=== PATIENT | female | born 1970 | race Caucasian/White ===

== ENCOUNTER 2016-09-03 07:19 | Emergency (ER) | payer BC ==
[~2016-09-03] VITALS: Ht 167.6 cm; Wt 87.1 kg
[~2016-09-03 07:19] MED LIST: CIPROFLOXACIN250 MG PO; CITALOPRAM HBR20 MG PO; FIORICET-COD 51 EACH PO; GEMFIBROZIL600 MG PO; LEVAQUIN750 MG PO; MEDROXYPROGESTE10 MG PO; NORCO 10-325 T1 EACH PO; NORCO 5-325 TA1 EACH PO; ONDANSETRON HCL4 MG PO; PREDNISONE20 MG PO; PROAIR HFA8.5 GM INH; PROVENTIL HFA6.7 GM INH; WAL-PHED 12 HO120 MG PO; ZOFRAN ODT4 MG PO; ZOFRAN ODT8 MG SL
[2016-09-03] MEDS ORDERED: TOPIRAMATE25 MG PO (07:34)
== END 2016-09-03 09:12 | disposition home or self-care (01) ==
LOC: ED 07:19
DX: R10.9 Unspecified abdominal pain (principal); E78.5 Hyperlipidemia, unspecified; F41.9 Anxiety disorder, unspecified; Z87.442 Personal history of urinary calculi; Z90.49 Acquired absence of other specified parts of digestive tract; Z88.0 Allergy status to penicillin; Z91.040 Latex allergy status; Z88.8 Allergy status to other drugs, medicaments and biological substances; Z79.891 Long term (current) use of opiate analgesic
CPT/HCPCS: 80053; 81001; 84703; 85025; 96361; 96374; 96375; 99283; J1885; J2405; J7030

== ENCOUNTER 2017-12-02 17:19 | Emergency (ER) | payer BC ==
[~2017-12-02] VITALS: Ht 167.6 cm; Wt 81.6 kg
--- OUTSIDE RECORDS SUMMARY | ~2017-12-02 | XMS | Clinical Summary ---
Demographics + + + | Address | [address] | | | [place] [address] | + + + | Home Phone | | + + + | Preferred Language | Unknown | + + + | Marital Status | | + + + | Zoroastrianism Affiliation | Unknown | + + + | Race | Unknown | + + + | Ethnic Group | Unknown | + + + Author + + + | Author | [facility] | + + + | Organization | [facility] | + + + | Address | Unknown | + + + | Phone | Unavailable | + + + Support + + +---------+ + | Name | Relationship | Address | Phone | + + +---------+ + | Valdo Zhu | ECON | Unknown | | + + +---------+ + Care Team Providers + +------+ + | Care Financial Planning Assistant Name | Role | Phone | + +------+ + | Andrew Walker MD | PP | | + +------+ + Allergies + + + + + + | Active Allergy | Reactions | Severity | Noted | Comments | | | | | Date | | + + + + + + | Niacin | Shortness of Breath | High | 09/08/19 | Lips turned blue | | | | | 18 | | + + + + + + | Paroxetine | Mental Changes | Low | 09/08/19 | | | | | | 18 | | + + + + + + | Penicillins | Anaphylaxis | High | 09/08/19 | | | | | | 18 | | + + + + + + Current Medications + + +--------+---------+------+------+-------+ | Prescription | Sig. | Disp. | Refills | Star | End | Statu | | | | | | t | Date | s | | | | | | Date | | | + + +--------+---------+------+------+-------+ | | Take by mouth. | | | | | Activ | | Glucosamine-Chondroi | | | | | | e | | tin-Vit C | | | | | | | | 4672-1028-14 MG/30ML | | | | | | | | LIQD | | | | | | | + + +--------+---------+------+------+-------+ | Cholecalciferol | Take by mouth. | | | | | Activ | | 2000 units CAPS | | | | | | e | + + +--------+---------+------+------+-------+ | vitamin E 400 UNIT | Take 400 Units by | | | | | Activ | | capsule | mouth 2 (two) times | | | | | e | | | daily. | | | | | | + + +--------+---------+------+------+-------+ | pseudoephedrine | Take 120 mg by mouth | | | | | Activ | | (SUDAFED) 120 MG 12 | as needed for | | | | | e | | hr tablet | Congestion. | | | | | | + + +--------+---------+------+------+-------+ | gemfibrozil | Take 600 mg by | | | | | Activ | | (LOPID) 600 MG | mouth. | | | | | e | | tabletIndications: | | | | | | | | before meal | | | | | | | + + +--------+---------+------+------+-------+ | | Take 5 mg by mouth | | | | | Activ | | medroxyPROGESTERone | daily. | | | | | e | | (PROVERA) 10 MG | | | | | | | | tabletIndications: | | | | | | | | 1st - 10th of the | | | | | | | | month only | | | | | | | + + +--------+---------+------+------+-------+ | cyclobenzaprine | Take 10 mg by mouth | | | | | Activ | | (FLEXERIL) 10 MG | as needed for Muscle | | | | | e | | tablet | spasms. | | | | | | + + +--------+---------+------+------+-------+ | | Take 1 tablet by | | | | | Activ | | butalbital-acetamino | mouth every 4 (four) | | | | | e | | phen-caffeine | hours as needed for | | | | | | | (ESGIC) 50-325-40 MG | Pain. | | | | | | | per tablet | | | | | | | + + +--------+---------+------+------+-------+ | tiZANidine | Start 1/2 tab by | 30 | 3 | 07/0 | | Activ | | (ZANAFLEX) 4 MG | mouth nightly x 1 | tablet | | 3/20 | | e | | tablet | week, then 1 tab | | | 18 | | | | | nightly. | | | | | | + + +--------+---------+------+------+-------+ | sumatriptan | Take 1 tablet by | 10 | 3 | 07/0 | 07/0 | Activ | | (IMITREX) 100 MG | mouth as needed for | tablet | | 3/20 | 3/20 | e | | tablet | Migraine. May repeat | | | 18 | 19 | | | | dose in 2 hours if | | | | | | | | no relief. Do not | | | | | | | | exceed 2 doses in 24 | | | | | | | | hours. | | | | | | + + +--------+---------+------+------+-------+ | topiramate | Take 25 mg by mouth | | | | 09/0 | Disco | | (TOPAMAX) 25 MG | 2 (two) times daily. | | | | 5/20 | ntinu | | capsule | | | | | 18 | ed | + + +--------+---------+------+------+-------+ Active Problems Not on file Encounters +--------+ + + + + | Date | Type | Specialty | Care Team | Description | +--------+ + + + + | 11/10/ | Office | | Megan Porras, | Cervicogenic | | 2018 | Visit | | PA-C | migraine (Primary | | | | | | Dx) | +--------+ + + + + | 10/13/ | Documentati | | Katherine Browning | Other (Denia Loza | | 2017 | on Only | | [facility] 04/23/16) | +--------+ + + + + | 10/08/ | Documentati | | Onelia Castañeda | Other ([facility] | | 2017 | on Only | | [place] | Physical Therapy | | | | | | DOS:09/15/17) | +--------+ + + + + | 09/16/ | Documentati | | Katherine Browning | Other (Referral | | 2017 | on Only | | [facility] | 08/06/2017) | +--------+ + + + + | 09/15/ | Documentati | | Katherine Browning | Other | | 2018 | on Only | | [facility] | (Headache/Migraine | | | | | | patient intake form | | | | | | 09/07/17) | +--------+ + + + + | 09/08/ | Hospital | | See, Medical | Pain | | 2018 | Encounter | | Record | | +--------+ + + + + | 09/08/ | Procedure | | | | | 2018 | Pass | | | | +--------+ + + + + | 09/08/ | Ancillary | | See, Medical | Pain | | 2018 | Orders | | Record | | +--------+ + + + + | 09/07/ | Office | | Megan Porras, | Cervicogenic | | 2018 | Visit | | PA-C | migraine (Primary | | | | | | Dx); Mixed headache | +--------+ + + + + | 09/07/ | Documentati | | Estrella Cash, | Other (Request for | | 2018 | on Only | | CHILD SUPPORT CASE OFFICER | records: Dr. Clarke: | | | | | | Denia Loza) | +--------+ + + + + from Last 3 Months Family History + + +------+ + | Medical History | Relation | Name | Comments | + + +------+ + | Stroke | Brother | | | + + +------+ + | High blood pressure | Father | | | + + +------+ + | High cholesterol | Father | | | + + +------+ + | High blood pressure | Maternal | | | | | Grandfath | | | | | er | | | + + +------+ + | High cholesterol | Mother | | | + + +------+ + + +------+--------+ + | Relation | Name | Status | Comments | + +------+--------+ + | Brother | | | | + +------+--------+ + | Father | | | | + +------+--------+ + | Maternal Grandfather | | | | + +------+--------+ + | Mother | | | | + +------+--------+ + Social History + +-------+ +--------+------+ | Tobacco Use | Types | Packs/Day | Years | Date | | | | | Used | | + +-------+ +--------+------+ | Never Smoker | | | | | + +-------+ +--------+------+ + +---+---+---+ | Smokeless Tobacco: | | | | | Never Used | | | | + +---+---+---+ + + +---------+ + | Alcohol Use | Drinks/We | oz/Week | Comments | | | ek | | | + + +---------+ + | No | | | | + + +---------+ + + + + | Sex Assigned at | Date Recorded | | | | + + + | Not on file | | + + + Last Filed Vital Signs + + + + | Vital Sign | Reading | Time Taken | + + + + | Blood Pressure | 111/72 | 11/10/2017 10:06 AM PDT | + + + + | Pulse | 71 | 11/10/2017 10:06 AM PDT | + + + + | Temperature | - | - | + + + + | Respiratory Rate | - | - | + + + + | Oxygen Saturation | 100% | 11/10/2017 10:06 AM PDT | + + + + | Inhaled Oxygen | - | - | | Concentration | | | + + + + | Weight | 82.1 kg (180 lb 14.4 | 11/10/2017 10:06 AM PDT | | | oz) | | + + + + | Height | 167.6 cm (5' 6") | 11/10/2017 10:06 AM PDT | + + + + | Body Mass Index | 29.2 | 11/10/2017 10:06 AM PDT | + + + + Plan of Treatment +--------+---------+ + + + | Date | Type | Specialty | Care Team | Description | +--------+---------+ + + + | 05/10/ | Office | | Megan Porras, | | | 2019 | Visit | | [facility] | | | | | | [place] | | | | | | [address] | | | | | | | | +--------+---------+ + + + + + + + + | Health Maintenance | Due Date | Last Done | Comments | + + + + + | Vaccine: | | | | | Dtap/Tdap/Td (1 - | 2 | | | | Tdap) | | | | + + + + + | Cervical Cancer | | | | | Screening (Pap) | 3 | | | + + + + + | Vaccine: Influenza | | | | | (#1) | 8 | | | + + + + + Results Not on filefrom Last 3 Months Insurance +---------+--------+ +------+-------+ + | Payer | Benefi | Subscriber | Type | Phone | Address | | | t Plan | ID | | | | | | / | | | | | | | Group | | | | | +---------+--------+ +------+-------+ + | PREMERA | PREMER | [id number] | | | [address] [address] | | | A BLUE | 1998 | | | [place], [place] | | | CARD | | | | [address] | +---------+--------+ +------+-------+ + + +--------+ +--------+ + + | Guarantor Name | Accoun | Relation to | Date | Phone | Billing Address | | | t Type | Patient | of | | | | | | | | | | + +--------+ +--------+ + + | ALLYSON ZHU | Person | Self | [birth year] Home: | [address] | | | al/Lucien | | 1970 | [phone] [place], [place] | | | bernabe | | | [phone] | [address] | + +--------+ +--------+ + +
--- OUTSIDE RECORDS SUMMARY | ~2017-12-02 | XMS | Encounter Summary ---
Demographics + + + | Address | [address] | | | [place] [address] | + + + | Home Phone | | + + + | Preferred Language | Unknown | + + + | Marital Status | | + + + | Orthodox Affiliation | Unknown | + + + | Race | Unknown | + + + | Ethnic Group | Unknown | + + + Author + + + | Author | [facility] | + + + | Organization | [facility] | + + + | Address | Unknown | + + + | Phone | Unavailable | + + + Support + + +---------+ + | Name | Relationship | Address | Phone | + + +---------+ + | Valdo Carrasquillo | ECON | Unknown | | + + +---------+ + Care Team Providers + +------+ + | Care Railroad Shop Inspector Name | Role | Phone | + +------+ + | Andrew Walker MD | PCP | | + +------+ + Reason for Referral MRI/CAT Scan (Routine) + +--------+ + + + + | Status | Reason | Specialty | Diagnoses / | Referred By | Referred To | | | | | Procedures | Contact | Contact | + +--------+ + + + + | Pending | | Radiology | Diagnoses | See, | | | Review | | | Pain | Medical | | | | | | Procedures | Record | | | | | | MRI brain | | | | | | | without | | | | | | | contrast | | | + +--------+ + + + + Encounter Details +--------+ + + + + | Date | Type | Department | Care Team | Description | +--------+ + + + + | 09/08/ | Ancillary | [facility] | See, Medical | Pain | | 2018 | [facility] | [facility] MRI | Record | | | | | [address] | | | | | | [place] [address] | | | | | | [phone] | | | +--------+ + + + + Social History + +-------+ +--------+------+ | [...] on file | | + + + as of this encounter Plan of Treatment +--------+---------+ + + + | Date | Type | Specialty | Care Team | Description | +--------+---------+ + + + | 05/10/ | Office | Neurology | Megan Porras, | | | 2018 | Visit | | [facility] | | | | | | [place], [place] | | | | | | [address] | | | | | | | | +--------+---------+ + + + as of this encounter Results MRI brain without contrast (01/30/2013 1:27 AM) + + + | Narrative | Performed At | + + + | This is a non-reportable procedure without a radiologist report and | [facility] | | is used for image storage only | RADIOLOGY | + + + + + + + + | Performing | Address | City/State/Zipcode | Phone Number | | Organization | | | | + + + + + | [facility] | [address] | [place] [address] | | + + + + + in this encounter Visit Diagnoses + + | Diagnosis | + + | Pain | + + | Generalized pain | + +"
--- OUTSIDE RECORDS SUMMARY | ~2017-12-02 | XMS | Encounter Summary ---
Demographics + + + | Address | [address] | | | [place] [address] | + + + | Home Phone | | + + + | Preferred Language | Unknown | + + + | Marital Status | | + + + | Gnosticism Affiliation | Unknown | + + + | Race | Unknown | + + + | Ethnic Group | Unknown | + + + Author + + + | Author | [email or web address] | + + + | Organization | [facility] | + + + | Address | Unknown | + + + | Phone | Unavailable | + + + Support + + +---------+ + | Name | Relationship | Address | Phone | + + +---------+ + | Valdo Carrasquillo | ECON | Unknown | | + + +---------+ + Care Team Providers + +------+ + | Care Manager Coding Name | Role | Phone | + +------+ + | Andrew Walker MD | PCP | | + +------+ + Encounter Details +--------+ + + + + | Date | Type | Department | Care Team | Description | +--------+ + + + + | 09/08/ | Procedure | [facility] | | | | 2018 | Pass | [facility] | | | | | | RADIOLOGY [address] | | | | | | [address] | | | | | | [place] [address] | | | | | | [phone] | | | +--------+ + + + [...] [place] | | | | | | [place] | | | | | | [phone] | | | | | | | | +--------+---------+ + + + as of this encounter Visit Diagnoses Not on filein this encounter"
--- OUTSIDE RECORDS SUMMARY | ~2017-12-02 | XMS | Encounter Summary ---
Demographics + + + | Address | [address] | | | [place] [address] | + + + | Home Phone | | + + + | Preferred Language | Unknown | + + + | Marital Status | | + + + | Voodoo Affiliation | Unknown | + + + | Race | Unknown | + + + | Ethnic Group | Unknown | + + + Author + + + | Author | [email or web address] | + + + | Organization | [facility] [employer] [facility] | + + + | Address | Unknown | + + + | Phone | Unavailable | + + + Support + + +---------+ + | Name | Relationship | Address | Phone | + + +---------+ + | Valdo Carrasquillo | ECON | Unknown | | + + +---------+ + Care Team Providers + +------+ + | Care C Engineer Name | Role | Phone | + +------+ + | Andrew Walker MD | PCP | | + +------+ + Reason for Visit +--------+ + | Reason | Comments | +--------+ + | Other | [facility] DOS:09/15/17 | +--------+ + Encounter Details +--------+ + + + + | Date | Type | Department | Care Team | Description | +--------+ + + + + | 10/08/ | Documentati | [place] | Onelia Castañeda, | [facility] ([facility] | | 2018 | on Only | [facility] | [place] | Physical Therapy | | | | [address] | | DOS:09/15/17) | | | | [place] | | | | | | [address] | | | | | | [phone] | | | +--------+ + + + [...] Neurology | Megan Porras, | | | 2019 | Visit | | [facility] | | | | | | [place] | | | | | | [address] | | | | | | | | +--------+---------+ + + + as of this encounter Visit Diagnoses Not on filein this encounter"
--- OUTSIDE RECORDS SUMMARY | ~2017-12-02 | XMS | Encounter Summary ---
Demographics + + + | Address | [address] | | | [place] [address] | + + + | Home Phone | | + + + | Preferred Language | Unknown | + + + | Marital Status | | + + + | Pentecostal Affiliation | Unknown | + + + | Race | Unknown | + + + | Ethnic Group | Unknown | + + + Author + + + | Author | [facility] | + + + | Organization | [facility] | + + + | Address | Unknown | + + + | Phone | Unavailable | + + + Support + + +---------+ + | Name | Relationship | Address | Phone | + + +---------+ + | Valdo Carrasquillo | ECON | Unknown | | + + +---------+ + Care Team Providers + +------+ + | Care Photostat Operator Helper Name | Role | Phone | + +------+ + | Andrew Walker MD | PCP | | + +------+ + Reason for Visit +--------+ + | Reason | Comments | +--------+ + | Other | Request for records: Dr. Clarke: Denia Loza | +--------+ + Encounter Details +--------+ + + + + | Date | Type | Department | Care Team | Description | +--------+ + + + + | 09/07/ | Documentati | [facility] | Estrella Cash, | [place] (Request for | | 2018 | on Only | [facility] | RENT AND HOUSING INVESTIGATOR | records: Dr. Clarke: | | | | [address] | | [place]ia Ojeda | | | | [place] | | | | | | [address] | | | | | | [phone] | | | +--------+ + + + [...] [place] | | | | | | [address] | | | | | | | | +--------+---------+ + + + as of this encounter Visit Diagnoses Not on filein this encounter"
--- OUTSIDE RECORDS SUMMARY | ~2017-12-02 | XMS | Encounter Summary ---
Demographics + + + | Address | [address] | | | [place] [address] | + + + | Home Phone | | + + + | Preferred Language | Unknown | + + + | Marital Status | | + + + | Mormon Affiliation | Unknown | + + + | Race | Unknown | + + + | Ethnic Group | Unknown | + + + Author + + + | Author | [facility] | + + + | Organization | [facility] | + + + | Address | Unknown | + + + | Phone | Unavailable | + + + Support + + +---------+ + | Name | Relationship | Address | Phone | + + +---------+ + | Valdo Carrasquillo | ECON | Unknown | | + + +---------+ + Care Team Providers + +------+ + | Care Staff Air Defense Officer Name | Role | Phone | + +------+ + | Andrew Walker MD | PCP | | + +------+ + Reason for Visit +--------+ + | Reason | Comments | +--------+ + | Other | Referral 08/06/2017 | +--------+ + Encounter Details +--------+ + + + + | Date | Type | Department | Care Team | Description | +--------+ + + + + | 09/16/ | Documentati | [facility] | Katherine Browning | Other (Referral | | 2018 | on Only | [facility] | [facility] | 08/06/2017) | | | | [address] | | | | | | [place], [place] | | | | | | [address] | | | | | | [phone] | | | +--------+ + + + [...] [place] | | | | | | [address] | | | | | | | | +--------+---------+ + + + as of this encounter Visit Diagnoses Not on filein this encounter"
--- OUTSIDE RECORDS SUMMARY | ~2017-12-02 | XMS | Encounter Summary ---
Demographics + + + | Address | [address] | | | [place] [address] | + + + | Home Phone | | + + + | Preferred Language | Unknown | + + + | Marital Status | | + + + | Jewish Affiliation | Unknown | + + + | Race | Unknown | + + + | Ethnic Group | Unknown | + + + Author + + + | Author | [facility] | + + + | Organization | [facility] | + + + | Address | Unknown | + + + | Phone | Unavailable | + + + Support + + +---------+ + | Name | Relationship | Address | Phone | + + +---------+ + | Valdo Carrasquillo | ECON | Unknown | | + + +---------+ + Care Team Providers + +------+ + | Care Outcome Analyst Name | Role | Phone | + +------+ + | Andrew Walker MD | PCP | | + +------+ + Reason for Visit +--------+ + | Reason | Comments | +--------+ + | Other | Denia Loza [facility] 04/23/16 | +--------+ + Encounter Details +--------+ + + + + | Date | Type | Department | Care Team | Description | +--------+ + + + + | 10/13/ | Documentati | [facility] | Katherine Browning | Other (Denia Loza | | 2018 | on Only | [facility] | [facility] | Clinic 04/23/16) | | | | [address] | | | | | | [place] | | | | | | [address] | | | | | | [phone] | | | +--------+ + + + [...] | | | | | | [place], [place] | | | | | | [address] | | | | | | | | +--------+---------+ + + + as of this encounter Visit Diagnoses Not on filein this encounter"
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
--- OUTSIDE RECORDS SUMMARY | ~2017-12-02 | XMS | Encounter Summary ---
Demographics + + + | Address | [address] | | | [place] [address] | + + + | Home Phone | | + + + | Preferred Language | Unknown | + + + | Marital Status | | + + + | Oriental Orthodox Affiliation | Unknown | + + + | Race | Unknown | + + + | Ethnic Group | Unknown | + + + Author + + + | Author | [facility] | + + + | Organization | [facility] [employer] | + + + | Address | Unknown | + + + | Phone | Unavailable | + + + Support + + +---------+ + | Name | Relationship | Address | Phone | + + +---------+ + | Valdo Carrasquillo | ECON | Unknown | | + + +---------+ + Care Team Providers + +------+ + | Care Rotor Casting Machine Setup Operator Name | Role | Phone | + +------+ + | Andrew Walker MD | PCP | | + +------+ + Reason for Visit MRI/CAT Scan (Routine) + +--------+ + + [...] + + | 09/08/ | Hospital | [facility] | See, Medical | Pain | | 2018 | Encounter | [facility] | Record | | | | | RADIOLOGY [address] | | | | | [address] | | | | | | [place] [address] | | | | | | [phone] | | | +--------+ + + + [...] + + + as of this encounter Medications at Time of Discharge + + +--------+---------+ + + | Medication | Sig. | Disp. | Refills | Start | End Date | | | | | | Date | | + + +--------+---------+ + + | | Take 1 tablet by | | | | | | butalbital-acetamino | mouth every 4 (four) | | | | | | phen-caffeine | hours as needed for | | | | | | (ESGIC) 50-325-40 MG | Pain. | | | | | | per tablet | | | | | | + + +--------+---------+ + + | Cholecalciferol | Take by mouth. | | | | | | 2000 units CAPS | | | | | | + + +--------+---------+ + + | cyclobenzaprine | Take 10 mg by mouth | | | | | | (FLEXERIL) 10 MG | as needed for Muscle | | | | | | tablet | spasms. | | | | | + + +--------+---------+ + + | gemfibrozil | Take 600 mg by | | | | | | (LOPID) 600 MG | mouth. | | | | | | tabletIndications: | | | | | | | before meal | | | | | | + + +--------+---------+ + + | | Take by mouth. | | | | | | Glucosamine-Chondroi | | | | | | | tin-Vit C | | | | | | | 3230-1484-45 MG/30ML | | | | | | | LIQD | | | | | | + + +--------+---------+ + + | | Take 5 mg by mouth | | | | | | medroxyPROGESTERone | daily. | | | | | | (PROVERA) 10 MG | | | | | | | tabletIndications: | | | | | | | 1st - 10th of the | | | | | | | month only | | | | | | + + +--------+---------+ + + | pseudoephedrine | Take 120 mg by mouth | | | | | | (SUDAFED) 120 MG 12 | as needed for | | | | | | hr tablet | Congestion. | | | | | + + +--------+---------+ + + | sumatriptan | Take 1 tablet by | 10 | 3 | 09/08/19 | | | (IMITREX) 100 MG | mouth as needed for | tablet | | 18 | 9 | | tablet | Migraine. May repeat | | | | | | | dose in 2 hours if | | | | | | | no relief. Do not | | | | | | | exceed 2 doses in 24 | | | | | | | hours. | | | | | + + +--------+---------+ + + | tiZANidine | Start 1/2 tab by | 30 | 3 | 09/08/19 | | | (ZANAFLEX) 4 MG | mouth nightly x 1 | tablet | | 18 | | | tablet | week, then 1 tab | | | | | | | nightly. | | | | | + + +--------+---------+ + + | vitamin E 400 UNIT | Take 400 Units by | | | | | | capsule | mouth 2 (two) times | | | | | | | daily. | | | | | + + +--------+---------+ + + | topiramate | Take 25 mg by mouth | | | | | | (TOPAMAX) 25 MG | 2 (two) times daily. | | | | 8 | | capsule | | | | | | + + +--------+---------+ + + as of this encounter Plan of Treatment +--------+---------+ + + + | Date | Type | Specialty | Care Team | Description | +--------+---------+ + + + | 05/10/ | Office | Neurology | Megan Porras, | | | 2019 | Visit | | [place] | | | | | | [place] | | | | | | [id number] | | | | | | | | +--------+---------+ + + + as of this encounter Procedures + +--------+ + + + | Procedure Name | Priori | Date/Time | Associated Diagnosis | Comments | | | ty | | | | + +--------+ + + + | MRI BRAIN WO | Routin | 01/30/2013 | Pain | Results for this | | CONTRAST | e | 1:27 AM | | procedure are in the | | | | PST | | results section. | + +--------+ + + + in this encounter Results MRI brain without contrast (01/30/2013 1:27 AM) + + + | Narrative | Performed At | + + + | This is a non-reportable procedure without a radiologist report and | [facility] | | is used for image storage only | [facility] | + + + + + + + + | Performing | Address | City/State/Zipcode | Phone Number | | Organization | | | | + + + + + | [facility] | [address] | [place] [address] | | + + + + + in this encounter Visit Diagnoses + + | Diagnosis | + + | Pain | + + | Generalized pain | + +"
--- OUTSIDE RECORDS SUMMARY | ~2017-12-02 | XMS | Encounter Summary ---
Demographics + + + | Address | [address] | | | [place] [address] | + + + | Home Phone | | + + + | Preferred Language | Unknown | + + + | Marital Status | | + + + | Worship Affiliation | Unknown | + + + | Race | Unknown | + + + | Ethnic Group | Unknown | + + + Author + + + | Author | [facility] | + + + | Organization | [facility] [facility] | + + + | Address | Unknown | + + + | Phone | Unavailable | + + + Support + + +---------+ + | Name | Relationship | Address | Phone | + + +---------+ + | Valdo Carrasquillo | ECON | Unknown | | + + +---------+ + Care Team Providers + +------+ + | Care Software Verification Engineer Name | Role | Phone | + +------+ + | Andrew Walker MD | PCP | | + +------+ + Reason for Visit +--------+ + | Reason | Comments | +--------+ + | Other | Headache/Migraine patient intake form 09/07/17 | +--------+ + Encounter Details +--------+ + + + + | Date | Type | Department | Care Team | Description | +--------+ + + + + | 09/15/ | Documentati | [facility] | Nam Katherine | Other | | 2018 | on Only | [facility] | [facility] | (Headache/Migraine | | | | [address] | | patient intake form | | | | [place] | | 09/07/17) | | | | [address] | | | | | | [phone] | | | +--------+ + + + [...] [place] | | | | | | [address] | | | | | | | | +--------+---------+ + + + as of this encounter Visit Diagnoses Not on filein this encounter"
--- OUTSIDE RECORDS SUMMARY | ~2017-12-02 | XMS | Encounter Summary ---
Demographics + + + | Address | [address] | | | [place] [address] | + + + | Home Phone | | + + + | Preferred Language | Unknown | + + + | Marital Status | | + + + | Lutheran Affiliation | Unknown | + + + | Race | Unknown | + + + | Ethnic Group | Unknown | + + + Author + + + | Author | [email or web address] [employer] | + + + | Organization | [facility] [employer] | + + + | Address | Unknown | + + + | Phone | Unavailable | + + + Support + + +---------+ + | Name | Relationship | Address | Phone | + + +---------+ + | Valdo Carrasquillo | ECON | Unknown | | + + +---------+ + Care Team Providers + +------+ + | Care Senior Data Warehouse Developer Name | Role | Phone | + +------+ + | Jade Walker MD | PCP | | + +------+ + Reason for Referral Physical Medicine (Routine) + + + + + + + | Status | Reason | Specialty | Diagnoses / | Referred By | Referred To | | | | | Procedures | Contact | Contact | + + + + + + + | Authorized | Specialty | Physical | Diagnoses | Vern, | Therapy, | | | Services | Therapy | | [place] Gu[place]man | Eastern | | | Required | | Cervicogenic | [address] [place] | | | | | migraine | [address] | Physical | | | | | Mixed | [address] | [address] | | | | | headache | [place], [place] | [address] | | | | | | [address] | [place], | | | | | | Phone: | [place] [address] | | | | | | [phone] | Phone: | | | | | | Fax: | [phone] | | | | | | [phone] | Fax: | | | | | | | [phone] | + + + + + + + Reason for Visit Consult and Treat (Routine) + +--------+ + + + + | Status | Reason | Specialty | Diagnoses / | Referred By | Referred To | | | | | Procedures | Contact | Contact | + +--------+ + + + + | Authorized | | Neurology | Diagnoses | Hui, | Vern, | | | | | Chronic | Jessica Sanders, | AS[place] Guzman | | | | | migraine | [place] [address] | [address] | | | | | without | [address] | Drive | | | | | aura, not | [place], | [place] | | | | | intractable, | [place] | [address] Phone: | | | | | without | [address] | [phone] | | | | | status | Phone: | Fax: | | | | | migrainosus | [phone] | [phone] | | | | | | Fax: | | | | | | | [phone] | | + +--------+ + + + + Encounter Details +--------+---------+ + + + | Date | Type | Department | Care Team | Description | +--------+---------+ + + + | 09/07/ | Office | [facility] | Megan Porras, | Cervicogenic | | 2018 | Visit | [facility] | [place] [address] | migraine (Primary | | | | [address] | Drive [place], [place] | Dx); Mixed headache | | | | [place], [place] | [address] | | | | | [address] | | | | | | [phone] | | | +--------+---------+ + + + [...] + + + | Blood Pressure | 91/61 | 09/07/2017 9:59 AM PDT | + + + + | Pulse | 79 | 09/07/2017 9:59 AM PDT | + + + + | Temperature | - | - | + + + + | Respiratory Rate | - | - | + + + + | Oxygen Saturation | 99% | 09/07/2017 9:59 AM PDT | + + + + | Inhaled Oxygen | - | - | | Concentration | | | + + + + | Weight | 85.3 kg (188 lb 1.6 | 09/07/2017 9:59 AM PDT | | | oz) | | + + + + | Height | 167.6 cm (5' 6") | 09/07/2017 9:59 AM PDT | + + + + | Body Mass Index | 30.36 | 09/07/2017 9:59 AM PDT | + + + + in this encounter Instructions Patient Instructions - Megan Porras PA-C - 09/07/2017 9:45 AM PDTMay add Vitamin B2(ribo flavin) 400 mg once daily and magnesium 200 mg twice daily for migraine prophylaxis. Reduce Topamax to 25 mg daily x 1 week, then discontinue. Referral physical therapy. Home exercises, stretches, isometric neck exercises. in this encounter Progress Notes Megan Porras PA-C - 09/07/2017 9:45 AM PDTFormatting of this note may be different from the original. Subjective: Patient ID: Allyson Carrasquillo is a 46 y.o. female. HPI The patient is seen today at the request of JADE WALKER MD for evaluation and manag ement of headaches. She developed headaches migraines for more than [...] change of migraine features over the years. Headache/migraine frequency: some headache 10-15 days per month. Migraine about 8 days per month. 12-20 days per month headache-free Headache duration: 4-7 hours Previous imaging: MRI brain 2013 [place], normal. Previous preventative medications tried: amitriptyline some [...] Review of Systems Constitutional: Positive for fatigue. Eyes: Positive for pain. Respiratory: Positive for shortness of breath. Musculoskeletal: Positive for neck pain. Neurological: Positive for dizziness, weakness, light-headedness, numbness and headaches. Psychiatric/Behavioral: Positive for decreased concentration and sleep disturbance. The pat ient is nervous/anxious. All other systems reviewed and are negative. Objective: BP 91/61 (BP Location: Right upper arm, Patient Position: Sitting) | Pulse 79 | Ht 1.676 m (5' 6") | Wt 85.3 kg (188 lb 1.6 oz) | SpO2 99% | BMI 30.36 kg/m Neurologic Exam Mental Status Oriented to person, place, and time. Attention: normal. Concentration: normal. Speech: speech is normal Level of consciousness: alert Cranial Nerves Cranial nerves II through XII intact. CN II Visual acuity: normal Right visual field deficit: none Left visual field deficit: none CN III, IV, Right pupil: Consensual response: intact. Accommodation: intact. Left pupil: Consensual response: intact. Accommodation: intact. Nystagmus: none Diplopia: none Ophthalmoparesis: none Upgaze: normal Downgaze: normal Conjugate gaze: present CN V Facial sensation intact. CN VII Facial expression full, symmetric. CN VIII Hearing: intact Motor Exam Muscle bulk: normal Overall muscle tone: normal Strength Strength 5/5 throughout. Sensory Exam Light touch normal. Temperature normal upper and lower extremities Gait, Coordination, and Reflexes Gait Gait: normal Coordination Romberg: negative Finger to nose coordination: normal Tandem walking coordination: normal Tremor Resting tremor: absent Intention tremor: absent Action tremor: absent Reflexes Right brachioradialis: 1+ Left brachioradialis: 1+ Right biceps: 1+ Left biceps: 1+ Right patellar: 1+ Left patellar: 1+ Right achilles: 1+ Left achilles: 1+ Right plantar: normal Left plantar: normal Right ankle clonus: absent Left ankle clonus: absent Physical Exam Constitutional: She is oriented to person, place, and time. Neurological: She is oriented to person, place, and time. She has normal strength. She has a normal Kjhowv-Wogh-Qaotbq Test, a normal Romberg Test and a normal Tandem Gait Test. Gait normal. Reflex Scores: Bicep reflexes are 1+ on the right side and 1+ on the left side. Brachioradialis reflexes are 1+ on the right side and 1+ on the left side. Patellar reflexes are 1+ on the right side and 1+ on the left side. Achilles reflexes are 1+ on the right side and 1+ on the left side. Psychiatric: Her speech is normal. Assessment and Plan: The patient is a 46 year old female with chronic headaches and migraine for more than 20 ye ars. Her neurological exam today is non-focal. She had negative brain MRI for headache evaluati on in [place] in 2012. Referral physical therapy for cervicogenic headache/migraine. Recommend start tizanidine 2 mg nightly x 1 week, then 4 mg nightly. Reduce Topamax to 25 mg daily x 1 week, then discontinued due to no perceived benefit or mo re side effects. May add Vitamin B2(riboflavin) 400 mg once daily and magnesium 200 mg twice daily for migra ine prophylaxis. Encourage non-pharmacological headache prophylaxis including as daily exercise, stress rela xation, proper nutrition, avoid skipping meals, get adequate sleep, avoid over-sleeping. Recommend daily stretching and isometric neck exercises, demonstrated today. Return in 8 weeks or sooner if needed. in this encounter Plan of Treatment +--------+---------+ + + + | Date | Type | Specialty | Care Team | Description | +--------+---------+ + + + | 05/10/ | Office | Neurology | Megan Porras, | | | 2019 | Visit | | [place] | | | | | | [place], [place] | | | | | | [address] | | | | | | | | +--------+---------+ + + + + +--------+ + + | Name | Priori | Associated Diagnoses | Order Schedule | | | ty | | | + +--------+ + + | Ambulatory referral to Physical | Routin | Cervicogenic | Ordered: 09/07/2017 | | Therapy, Eval and Treat | e | migraine Mixed | | | | | headache | | + +--------+ + + as of this encounter Visit Diagnoses + + | Diagnosis | + + | Cervicogenic migraine - Primary | + + | Other forms of migraine, without mention of intractable migraine without mention of | | status migrainosus | + + | Mixed headache | + + | Headache | + +
[~2017-12-02 17:19] MED LIST changes: +TOPIRAMATE25 MG PO
[2017-12-02] MEDS ORDERED: ZANAFLEX4 MG PO (17:34)
[2017-12-02] MEDS ORDERED: GEMFIBROZIL600 MG PO (17:35)
== END 2017-12-02 20:31 | disposition home or self-care (01) ==
LOC: ED 17:19
DX: N20.0 Calculus of kidney (principal); Z88.0 Allergy status to penicillin; Z88.5 Allergy status to narcotic agent; Z91.040 Latex allergy status; Z88.1 Allergy status to other antibiotic agents; Z88.8 Allergy status to other drugs, medicaments and biological substances; Z79.899 Other long term (current) drug therapy
CPT/HCPCS: 80053; 81001; 84703; 85025; 96361; 96374; 96375; 99284; J1885; J2405; J7030